=== PATIENT | male | born 1985 | race Caucasian/White ===

== ENCOUNTER 2018-03-23 05:56 | Emergency (ER) | payer OTHER ==
[~2018-03-23] VITALS: Ht 167.6 cm; Wt 68.0 kg
[2018-04-19] MEDS ORDERED: Amox Tr-K Clv1 EAC2 PO (18:43)
[2018-04-19] MEDS ORDERED: Bactrim Ds Tab1 EACH PO (18:53)
[2018-04-19] MEDS ORDERED: METPRE4DP PO (18:53)
[2018-04-19] MEDS ORDERED: Keflex500 MG PO (18:53)
== END 2018-03-23 13:08 | disposition short-term general hospital (02) ==
LOC: ER 05:56
DX: S02.601A Fracture of unspecified part of body of right mandible, initial encounter for closed fracture (principal); S02.652A Fracture of angle of left mandible, initial encounter for closed fracture; Y04.2XXA Assault by strike against or bumped into by another person, initial encounter
CPT/HCPCS: 70100; 76380; 96361; 96365; 96372; 96375; 96376; 99285-25; J0690; J1170; J2405; J2550; J3010; J7030